=== PATIENT | female | born 1990 | race African-American/Black ===

== ENCOUNTER 2022-11-27 09:05 | Emergency (ER) | payer OTHER ==
[~2022-11-27] VITALS: Ht 162.6 cm; Wt 63.6 kg
[~2022-11-27 09:05] MED LIST: ALBU17AE27 IH; FLUT1DIS6 IH
[2022-11-27] MEDS ORDERED: PERTUSS(ACELL),DIPH,TET VAC/PF 0.5 ML SYRINGE IM. ONE (10:30)
[2022-11-27] MEDS ORDERED: LIDOCAINE 1% 10 ML VIAL SQ ONE (10:30)
[2022-11-27 14:00] VITALS: BP 108/67
== END 2022-11-27 14:17 | disposition home or self-care (01) ==
LOC: EMS 09:24
DX: S31.010A Laceration without foreign body of lower back and pelvis without penetration into retroperitoneum, initial encounter (principal); J45.909 Unspecified asthma, uncomplicated; W25.XXXA Contact with sharp glass, initial encounter; Y93.89 Activity, other specified; Y92.89 Other specified places as the place of occurrence of the external cause; Y99.8 Other external cause status
CPT/HCPCS: 99283; 90715; 90471; 12004; J3490

== ENCOUNTER 2023-01-06 09:44 | Emergency (ER) | payer OTHER ==
[~2023-01-06] VITALS: Ht 152.4 cm; Wt 63.6 kg
[2023-01-06] MEDS ORDERED: LATA2.5D14 OU (11:16)
[2023-01-06] MEDS ORDERED: HYDR-3421 PO (11:16)
[2023-01-06] MEDS ORDERED: TRET20CR32 TP (11:16)
[2023-01-06 11:40] VITALS: BP 124/88
[2023-01-06] MEDS ORDERED: HYDROCODONE/ACETAMINOPHEN 5-325 MG TABLET PO ONE (12:00)
[2023-01-06] MEDS ORDERED: NAPR-1025 PO (12:03)
[2023-01-06] MEDS ORDERED: HYDR-4723 PO (12:03)
[2023-01-06] MEDS ORDERED: ACET-66 PO (12:06)
== END 2023-01-06 12:24 | disposition home or self-care (01) ==
LOC: EMS 09:50
DX: M25.562 Pain in left knee (principal); J45.909 Unspecified asthma, uncomplicated
CPT/HCPCS: 99283

== ENCOUNTER 2023-05-09 09:39 | Emergency (ER) | payer OTHER ==
[~2023-05-09] VITALS: Ht 154.9 cm; Wt 63.6 kg
[~2023-05-09 09:39] MED LIST changes: +ACET-66 PO; -ALBU17AE27 IH; -FLUT1DIS6 IH; +HYDR-3421 PO; +HYDR-4723 PO; +LATA2.5D14 OU; +NAPR-1025 PO; +TRET20CR32 TP
[2023-05-09 09:49] VITALS: BP 144/88; PULSE 75; RESP 20; TEMP 98.5
[2023-05-09] MEDS ORDERED: ACET-3385 PO (09:53)
[2023-05-09] MEDS ORDERED: IBUPROFEN 600 MG TABLET PO ONE (12:15)
[2023-05-09] MEDS ORDERED: IBUP-1492 PO (13:39)
== END 2023-05-09 14:31 | disposition home or self-care (01) ==
LOC: EMS 09:41
DX: M25.562 Pain in left knee (principal); J45.909 Unspecified asthma, uncomplicated
CPT/HCPCS: 29505; 99283

== ENCOUNTER 2023-07-01 10:13 | Emergency (ER) | payer OTHER ==
[~2023-07-01] VITALS: Ht 154.9 cm; Wt 59.1 kg
[~2023-07-01 10:13] MED LIST changes: +ACET-3385 PO; -ACET-66 PO; -HYDR-3421 PO; -HYDR-4723 PO; +IBUP-1492 PO; -LATA2.5D14 OU; -NAPR-1025 PO; -TRET20CR32 TP
[2023-07-01 10:16] VITALS: BP 132/80; PULSE 84; RESP 18; TEMP 97.9
[2023-07-01] MEDS ORDERED: IBUPROFEN 600 MG TABLET PO ONE (10:30)
[2023-07-01] MEDS ORDERED: IBUP-1492 PO (11:52)
== END 2023-07-01 12:45 | disposition home or self-care (01) ==
LOC: EMS 10:16
DX: S80.02XA Contusion of left knee, initial encounter (principal); J45.909 Unspecified asthma, uncomplicated; W01.0XXA Fall on same level from slipping, tripping and stumbling without subsequent striking against object, initial encounter; Y93.89 Activity, other specified; Y92.89 Other specified places as the place of occurrence of the external cause; Y99.8 Other external cause status
CPT/HCPCS: 99283

== ENCOUNTER 2024-03-13 09:18 | Emergency (ER) | payer OTHER ==
[~2024-03-13] VITALS: Ht 152.4 cm; Wt 56.8 kg
[2024-03-13 09:32] VITALS: BP 115/62; PULSE 72; RESP 18; TEMP 98.2
[2024-03-13] MEDS ORDERED: IBUPROFEN 600 MG TABLET PO ONE (09:45)
[2024-03-13] MEDS ORDERED: ACET-2247 PO (10:47)
[2024-03-13] MEDS ORDERED: IBUP-1492 PO (10:47)
[2024-03-13] MEDS: KETOROLAC TROMETHAMINE 30 MG/ML VIAL IM ONE (11:02)
== END 2024-03-13 11:19 | disposition home or self-care (01) ==
LOC: EMS 09:28
DX: S80.02XA Contusion of left knee, initial encounter (principal); J45.909 Unspecified asthma, uncomplicated; W01.0XXA Fall on same level from slipping, tripping and stumbling without subsequent striking against object, initial encounter; Y93.89 Activity, other specified; Y92.89 Other specified places as the place of occurrence of the external cause; Y99.8 Other external cause status
CPT/HCPCS: 99283; 73562; 96372; J1885

== ENCOUNTER 2024-07-12 09:46 | Emergency (ER) | payer OTHER ==
[~2024-07-12] VITALS: Ht 154.9 cm; Wt 61.4 kg
[~2024-07-12 09:46] MED LIST changes: +ACET-2247 PO; -ACET-3385 PO
[2024-07-12 09:54] VITALS: TEMP 99.1
[2024-07-12] MEDS: IBUPROFEN 600 MG TABLET PO ONE (11:00)
[2024-07-12 14:18] VITALS: BP 135/72; PULSE 72; RESP 16; O2SAT 98
[2024-07-12] MEDS ORDERED: IBUP-1492 PO (14:30)
== END 2024-07-12 14:41 | disposition home or self-care (01) ==
LOC: EMS 09:46
DX: S83.92XA Sprain of unspecified site of left knee, initial encounter (principal); J45.909 Unspecified asthma, uncomplicated; R29.6 Repeated falls; W19.XXXA Unspecified fall, initial encounter; Y93.01 Activity, walking, marching and hiking; Y92.89 Other specified places as the place of occurrence of the external cause; Y99.8 Other external cause status
CPT/HCPCS: 99283